=== PATIENT | female | born 1940 | race Caucasian/White ===

== ENCOUNTER 2016-07-08 10:11 | Day surgery (SDC) | payer MEDICARE ==
[~2016-07-08] VITALS: Ht 152.4 cm; Wt 73.0 kg
[~2016-07-08 10:11] MED LIST: 0.9% Sodium Chloride 1,000 ML IV SCH; ATOR10TA66 PO; GENT5DRO26 BOTH_EYES; LATA2.5D6 OP; LOSA25TA21 PO; OMPR20CCR PO; Sodium Chloride LOK Flush 10 mL Syringe IV PRN; TIMO5DRO5 OP; fentaNYL-PF 50 mCg/mL 2 mL Inj IVPUSH PRN
[2016-07-08 10:38] VITALS: BP 165/110; PULSE 77; RESP 16; O2SAT 97
[2016-07-08 12:08] VITALS: BP 110/73; PULSE 81; RESP 16; O2SAT 94
[2016-07-08 12:19] VITALS: BP 103/65; PULSE 69; RESP 16; O2SAT 94
[2016-07-08 12:23] VITALS: BP 100/68; PULSE 80; RESP 16; O2SAT 95
--- NOTE | 2016-07-08 13:27 | ENDO ---
[address] [address] ENDOSCOPY PROCEDURE PATIENT: BAO MUNSON : 1940 MR#: [id number] ADMIT: 07/08/2016 JOB ID: [id number] DATE OF SERVICE: 07/08/2016 PRIMARY PROVIDER: Percy Candelario MD. PROCEDURE: Esophagogastroduodenoscopy with biopsy. INDICATIONS: A 76-year-old female with a history of dyspepsia refractory to PPI. She has a history of hiatal hernia. Updated endoscopic evaluation is pursued. EQUIPMENT: [id number]. SEDATION: 1. Versed 5 mg. 2. Fentanyl 125 mcg. COMPLICATIONS: None identified. PROCEDURE INFORMATION: After the risks and benefits were explained, written and verbal informed consent was obtained. The patient was brought into the endoscopy suite and placed into the left lateral decubitus position. Sedation was achieved using the above-stated medications with the addition of oxygen via nasal cannula. The scope was introduced into the mouth through the bite block, and advanced under direct visualization to the level of the second portion of the duodenum. The scope was slowly withdrawn to carefully examine the mucosa for any defects or lesions. Retroflexed views were accomplished in the stomach. The stomach was decompressed. The scope removed from the patient who tolerated the procedure well. FINDINGS: 1. Duodenum: This appeared visually normal from the bulb through to the second portion. 2. Stomach: No ulcers, no outlet obstruction, no mass lesions. Mild gastropathy identified throughout. Random biopsy was acquired for exclusion of helicobacter or any other underlying histopathology. Otherwise, retroflexed views of the LES were unremarkable. 3. Esophagus: The squamocolumnar junction correlated with the top of the gastric folds. The GE junction was at 35 cm from the incisors. The diaphragmatic pinchcock was at 38 cm from the incisors. No acute erosive changes. No strictures. No mass lesions. ENDOSCOPIC DIAGNOSES: 1. Hiatal hernia. 2. Gastropathy. RECOMMENDATIONS: 1. Await histopathology. 2. Continue anti-reflux therapy. 3. The patient is offered a trial of natural probiotic. 4. Will follow up in my office on clinical efficacy in the short term.
--- NOTE | 2016-07-09 14:09 | PATH ---
SURGICAL PATHOLOGY Attending Physician:Derek Canas CASE STATUS: Signed Out PATIENT NAME: BAO MUNSON PID: [id number] : 1940 DATE COLLECTED:07/08/2016 21:53 SPECIMEN: Gastric, Biopsy CLINICAL HISTORY: 1). GASTRIC BIOPSY FINAL DIAGNOSIS: 1.GASTRIC BIOPSY: CHANGES CONSISTENT WITH BENIGN FUNDIC GLAND POLYP, NEGATIVE FOR ATYPIA. ICD10 CODE K31.7 GROSS DESCRIPTION: The specimen is received in one formalin filled container labeled with the patient's name, sublabeled "gastric" and consists of a 0.2 x 0.2 x 0.2 CM portion of tissue which is entirely submitted in one cassette. 07/08/2016 DAC MICRO DESCRIPTION: See diagnosis. ICD-9 CODES: CPT CODES: 1: 02934 PROCEDURE/ADDENDA: Addendum SPI Addendum Diagnosis {Not Entered} Addendum Comment At the request of Dr. Collins Man, additional information is added to the diagnosis regarding intestinal metaplasia and Helicobacter pylori. Negative for evidence of Helicobacter pylori. Negative for intestinal metaplasia. Electronically Signed Out Collins Munoz MD Electronically Signed Out Collins Munoz MD [facility] Pathology [facility] [address] [place] [address] Technical component performed at [facility], [facility] [address], [place], [address]
== END 2016-07-08 23:59 | disposition home or self-care (01) ==
LOC: END 10:11
PROVIDERS: ATTEND Internal Medicine Gastroenterology
DX: K44.9 Diaphragmatic hernia without obstruction or gangrene (principal); K31.9 Disease of stomach and duodenum, unspecified; Z85.828 Personal history of other malignant neoplasm of skin
CPT/HCPCS: 43239; J2250; J7030

== ENCOUNTER 2016-12-11 10:13 | Emergency (ER) | payer MEDICARE ==
[~2016-12-11] VITALS: Ht 149.9 cm; Wt 68.2 kg
[~2016-12-11 10:13] MED LIST changes: -0.9% Sodium Chloride 1,000 ML IV SCH; -Sodium Chloride LOK Flush 10 mL Syringe IV PRN; -fentaNYL-PF 50 mCg/mL 2 mL Inj IVPUSH PRN
[2016-12-11 10:17] VITALS: BP 184/118; PULSE 85; RESP 12; O2SAT 99
--- NOTE | 2016-12-11 10:20 | ED.REPORT ---
HPI-General Illness Date of Service Dec 11, 2016 ED Provider: Cresencio Constantino MD 76 y/o female with a hx of HTN, hyperlipidemia and hiatal hernia presents to the ED complaining of intermittent chest pain that radiates to the back and lasts 1-2 minutes, onset 10 hours ago. The pt woke up from the pain at midnight last night. She states she has been experiencing this pain for several years. It typically wakes her up at night at which point she drinks warm water and "take a little bit of Manuka honey" which resolves her sx. However, today nothing has helped, so she went to the urgent care and was advised to come in to the ED. The pt had also visited Dr. Candelario, her PCP, 4 days ago who found her ECG was abnormal but unchanged from a year ago. The pt takes 25mg Losartan and Atorvastatin but she did not take any today. Instead, she took TUMS, after which she began experiencing nausea. She also reports high blood pressure of 151 /111 this morning. She denies vomiting, fever, chills, diarrhea,constipation, hematochezia, dysuria and new onset of cough (she has chronic dry cough). She is scheduled for Fonix and to meet with Dr. Man, her heel packer. Nursing Notes Stated Complaint: CHEST PAIN Chief Complaint: Chest Pain Nursing Notes Reviewed: Yes Allergies: Coded Allergies: Penicillins (Verified Allergy, Unknown, 07/08/16) Scheduled Atorvastatin Calcium (Atorvastatin Calcium) 10 Mg Tablet 10 MG PO DAILY Gentamicin Sulfate (Gentamicin 0.3% Ophthalmic Solution) 5 Ml Drops 2 DRP BOTH_ EYES UD Latanoprost (Latanoprost) 2.5 Ml Drops 1 GTT OP HS Omeprazole (Prilosec) 20 Mg Capcr 20 MG PO DAILY Miscellaneous Medications Losartan Potassium (Losartan Potassium) 25 Mg Tablet Unknown Dose PO Timolol Maleate (Timolol Maleate) 5 Ml Drops 5 ML OP General Time Seen by MD: 10:20 Chief Complaint Chest pain Hx Obtained From: Patient Arrived By: Walk-in Sudden in Onset?: Yes Onset Occurred: 9 - 12 hours ago Symptom Duration: Intermittent Location: : Chest Quality: Painful Radiation: : Back Severity: Current: Mild Severity: Maximum: Mild Recent Healthcare: Recent doctor visit Similar Sx Previous: Yes Past Medical History Past Medical History Hiatal hernia Reports: Hyperlipidemia, Hypertension Past Surgical History Biopsy Smoking History Never Smoker Ambulatory Status Independent Review of Systems Reports: high BP Full Review of Systems Constitutional: Denies: Chills, Fever Respiratory: Denies: Non-productive cough (chronic cough) Cardiovascular: Reports: Chest pain GI: Reports: Nausea, Denies: Constipation, Diarrhea, Hematochezia, Vomiting Female: Denies: Dysuria Complete sys rev & neg: except as marked. Physical Exam Vital Signs Vital Signs Date Time Temp Pulse Resp B/P Pulse Ox O2 Delivery O2 Flow Rate FiO2 12/11/16 11:42 36.4 74 20 166/111 98 Room Air 12/11/16 10:17 36.4 85 12 184/118 99 Room Air Initial VS: Reviewed Head / Eyes: Atraumatic, Normocephalic Neck: Supple, Non-tender, Full range of motion Abdomen / GI: Soft, Non-tender Extremities: Vascular intact, Neuro intact, No swelling, No tenderness Skin: Warm, Dry, No cyanosis Neurologic: Alert, Oriented, Nonfocal General/Constitutional: Awake, Alert, No acute distress, Cooperative Respiratory / Chest: Atraumatic, Breath sounds NL, No respiratory distress, No wheezing Cardiovascular: Heart rate NL, Regular rhythm, Peripheral circulation NL Interpretation & Diagnostics Lab Results Interpretation Result Diagram: 12/11/16 1036 12/11/16 1036 Test 12/11/16 10:36 White Blood Count 7.7th/mm3 (3.8-10.1) Red Blood Count 5.36mil/mm3 (3.90-5.20) Hemoglobin 15.9g/dL (12.0-15.6) Hematocrit 47.7% (35.0-46.0) Mean Corpuscular Volume 89.0fL (81-100) Mean Corpuscular Hemoglobin 29.7pg (27.0-35.0) Mean Corpuscular Hemoglobin Concent 33.3% (32.0-37.0) Red Cell Distribution Width 13.8% (12.3-15.4) Platelet Count 204bil/L (150-400) Neutrophils (%) (Auto) 69.6% (40-74) Lymphocytes (%) (Auto) 25.7% (14-46) Monocytes (%) (Auto) 4.4% (4-12) Eosinophils (%) (Auto) 0.1% (0-5) Basophils (%) (Auto) 0.1% (0-3) Sodium Level 142mEq/L (134-144) Potassium Level 4.5mEq/L (3.5-5.2) Chloride Level 103mEq/L (97-108) Carbon Dioxide Level 25mmol/L (18-29) Blood Urea Nitrogen 11mg/dL (8-27) Creatinine 0.70mg/dL (0.57-1.00) Estimat Glomerular Filtration Rate 116mL/min (>59) Glucose Level 127mg/dL (60-99) Calcium Level 10.2mg/dL (8.5-10.1) Total Bilirubin 0.5mg/dL (0.0-1.2) Aspartate Amino Transf (AST/SGOT) 17U/L (0-50) Alanine Aminotransferase (ALT/SGPT) 14U/L (0-32) Alkaline Phosphatase 69U/L (25-165) Troponin T < 0.010ug/L (0.0-0.011) Total Protein 7.3g/dL (6.4-8.4) Albumin 4.3g/dL (3.4-5.0) ECG Interpretation ECG Interpretation: Left axis deviation Left anterior fascicular block Normal sinus rhythm. Rate 80. No specific ST wave changes This ECG same as compared to one done on December 07. Time: 09:42 Interpreted by: ED physician Re-Eval/Medical Decision Med Decision/Clinical Course Uncontrolled hypertension today. I believe that high blood pressure at this moment is likely related to the fact that she did not take her blood pressure medicine this morning. I recommended that she take her regular dose as she gets home. Source of Hx: Old records Time of Eval: 11:32 Patient Status: Condition improved Re-Evaluation/Progress Note: Rechecked pt. Discussed lab results, diagnosis and plan to discharge. Pt understands and agrees with the plan. F/U instructions and RTER warning given. All questions addressed. Symptoms are improved with GI cocktail Counseled Regarding: Diagnosis, Lab results, Need for follow-up, When/why to return to ED Discharge & Departure Primary Impression: Midepigastric pain Additional Impression: Hypertension Disposition: Home Discharge Condition All VS Reviewed: Yes Condition: Stable Patient Instructions: Epigastric Pain (ED) Additional Instructions: No dangerous cause for your pain is discovered today. I do not believe this represents a heart attack or any other immediately dangerous condition. Laboratory data is reassuring. I recommended that he follow-up with your primary care provider in the coming days to consider further evaluation for these symptoms. Referrals: Percy Candelario MD (PCP) Scribe Attestation Portions of this note were transcribed by Keerthi Collins. I, , personally performed the history, physical exam and medical decision- making;I reviewed and confirmed the accuracy of the information in the transcribed note. Signed by Zhen Young. 12/11/16 11:31 copies to: Percy Candelario MD, Kirk H MD Dec 11, 2016 10:20 Keerhti Collins Dec 11, 2016 10:32
[2016-12-11] MEDS ORDERED: LidocaineVisc 2%:Antacid 1:1 10 mL Syringe PO ONE (10:30)
[2016-12-11 10:43] LABS: BASOPHILS % (AUTO) 0.1 % (0-3); EOSINOPHILS % (AUTO) 0.1 % (0-5); MONOCYTES % (AUTO) 4.4 % (4-12); Mean Corpuscular Hemoglobin 29.7 pg (27.0-35.0); NEUTROPHILS % (AUTO) 69.6 % (40-74); Platelet Count 204 bil/L (150-400)
[2016-12-11 11:24] LABS: TROPONIN T < 0.010 ug/L (0.0-0.011)
[2016-12-11 11:42] VITALS: BP 166/111; PULSE 74; RESP 20; O2SAT 98
== END 2016-12-11 11:43 | disposition home or self-care (01) ==
LOC: SED 10:13
DX: R10.13 Epigastric pain (principal); I10 Essential (primary) hypertension; R11.0 Nausea; E78.5 Hyperlipidemia, unspecified; Z87.19 Personal history of other diseases of the digestive system; Z88.0 Allergy status to penicillin
CPT/HCPCS: 36415; 80053; 84484; 85025; 93005; 99285; G0463

== ENCOUNTER 2017-02-17 06:32 | Day surgery (SDC) | payer MEDICARE ==
[~2017-02-17] VITALS: Ht 152.4 cm; Wt 65.4 kg
[2017-02-17] VITALS (11 sets, daily range): BP systolic 108–164; BP diastolic 6–83; PULSE 60–85; RESP 11–18; O2SAT 94–99
[2017-02-17] MEDS: Lactated Ringer's 1,000 ML IV SCH ×3 (06:09→12:15)
[~2017-02-17 06:32] MED LIST changes: +CeFAZolin Inj 2 GM in IV Premix 1 EACH IV ONE; -GENT5DRO26 BOTH_EYES; +MULT-1018 PO
[2017-02-17] MEDS ORDERED: Ketamine 10 mg/mL 20 mL Inj ONE (06:33)
[2017-02-17] MEDS ORDERED: HYDROmorphone 1 mg/mL Inj ONE (06:33)
[2017-02-17] MEDS ORDERED: Glycopyrrolate 0.2 MG/ML 1mL Inj ONE (06:33)
[2017-02-17] MEDS ORDERED: Rocuronium 10 mg/mL 5 mL Inj ONE (06:33)
[2017-02-17] MEDS ORDERED: Neostigmine 1 mg/mL 10 mL Inj ONE (06:33)
[2017-02-17] MEDS ORDERED: Propofol 10,000 mCg/mL 20 mL Inj ONE (06:33)
[2017-02-17] MEDS ORDERED: Dexamethasone 4 mg/mL Inj ONE (06:33)
[2017-02-17] MEDS ORDERED: MetoCLOpramide 5 mg/mL 2 mL Inj ONE (06:33)
[2017-02-17] MEDS ORDERED: Ondansetron 2 mg/mL 2 mL Inj ONE (06:33)
[2017-02-17] MEDS ORDERED: Phenylephrine 10,000 mCg/mL Inj IVPUSH PRN (10:45)
[2017-02-17] MEDS ORDERED: MetoCLOpramide 5 mg/mL 2 mL Inj IVPUSH PRN (10:45)
[2017-02-17] MEDS ORDERED: Lactated Ringer's 1,000 ML IV SCH (10:45)
[2017-02-17] MEDS ORDERED: Lactated Ringer's 500 ML IV PRN (10:45)
[2017-02-17] MEDS ORDERED: HYDROmorphone 1 mg/mL Inj IVPUSH PRN (10:45)
[2017-02-17] MEDS ORDERED: fentaNYL-PF 50 mCg/mL 2 mL Inj IVPUSH PRN (10:45)
[2017-02-17] MEDS ORDERED: EPHEDrine Sulfate 50 mg/mL Inj IVPUSH PRN (10:45)
[2017-02-17] MEDS ORDERED: Dexamethasone 4 mg/mL Inj IVPUSH PRN (10:45)
--- NOTE | 2017-02-17 10:45 | PCM.HPANE ---
Patient Data Surgeon Admitting Provider: Attending Provider:Cris Fischer MD Primary Care Physician:Percy Candelario MD Other Provider:Presley Mai Anesthesia Reason for Visit Chronic Cholecystitis Ht/WT & BMI Height (Feet): 5 Height (Inches): 0.00 Weight (Kilograms): 65.4 Body Mass Index 28.00 Allergies Coded Allergies: Penicillins (Verified Allergy, Severe, anaphylaxis, 02/10/17) Past Anesthesia History Anesthesia History: Denies:: Abnormal Airway, Anesthesia Reactions (Has not had surgery since child tonsillectomy), Difficult Intubation, Fam Anesthesia Reaction, Fam Malignant Hypertherm, Malignant Hyperthermia Diabetes History Hx Diabetes?: No MRSA MRSA: No Medications Home Meds Incl Beta Nurys: No Reported Medications Multivitamin (Multi Vitamin Daily)1 Each Tablet1 Each PO DAILY 30 Days Ref 0 02/10/17 Losartan Potassium 25 Mg [id number] Mg PO DAILY 02/10/17 Timolol Maleate 5 Ml Drops5 Ml OP 07/07/16 Omeprazole (Prilosec)20 Mg Capcr20 Mg PO DAILY 30 Days Ref 0 02/19/14 Latanoprost 2.5 Ml Drops1 Gtt OP HS #1 BOTTLE 02/19/14 Atorvastatin Calcium 10 Mg [id number] Mg PO DAILY 30 Days Ref 0 02/19/14 Discontinued Reported Medications Gentamicin Sulfate (Gentamicin 0.3% Ophthalmic Solution)5 Ml Drops2 Drp BOTH_ EYES UD #5 ML Ref 0 07/07/16 Losartan Potassium 25 Mg TabletUnknown Dose PO 07/07/16 History History of ENT Problems?: No HEENT History: Denies:: Abnormal Airway Difficult Intubation Dysphagia Hearing Problem Sinus Problem TMJ Denture Type: None Teeth Condition: Within Normal Limits Hx of Heart Problems?: Yes Cardiovascular History: Positive for:: Chest Pain (non cardiac chest pain) Hypertension Denies:: AICD Atrial Fibrillation Cardiac Surgery Congestive Heart Failure Heart Murmur Irregular Heartbeat Pacemaker Peripheral Vascular Rheumatic Fever Valvular Heart Disease Hx of Respiratory Problem?: No Respiratory History: Positive for:: Cough (prilosec related) Denies:: Asthma COPD Chest Surgery Dyspnea Emphysema Hemoptysis Pneumonia Pulmonary Embolism Tuberculosis Use of C-PAP Machine Use of Inhalers / NEBS Hx Neurologic Problems?: No Neurological History: Denies:: Alzheimer's Disease CVA Dementia Dizziness Headaches Multiple Sclerosis Parkinson's Disease Seizures TIA Hx of GI Problems?: Yes Gastrointestinal History: Denies:: Cirrhosis Diverticulitis Gall Bladder Disease Gastroesphageal Reflux Gastrointestinal Bleeding Heartburn Hepatitis Hiatal Hernia Liver Disease Rectal Bleeding Other GI Pertinent History: Banded hemorrid Hx of Problems?: No Genitourinary History: Denies:: HX of Hemodialysis Kidney Stones Urinary Tract Infection HX of Peritoneal Dialysis: No Female Hx: Denies:: Currently Problems with Breasts? Skin History: Denies:: History Skin Disorders? Hx Musculoskeletal Problems?: No Musculoskeletal History: Denies:: Back Injury Degenerative Joint Joint Replacement Musculoskeletal Trauma (torn cartlidge right leg) Myasthenia Gravis Osteoarthritis Rheumatoid Arthritis Systemic Lupus Psycho Social History: Denies:: Anxiety Hx Depression Hx Surgeries?: Yes (TONSILECTOMY AGE 4 ) Hx Any Other Health Problems?: No Other History: Denies:: Cancer Endocrine Disease Hospitalization (child ) Thyroid Disease History Blood Transfusions: Positive for:: Accept Blood Products? Blood Transfusions Denies:: Blood Transfuse Reaction Hx Diabetes: No Hx Alcohol Use: Yes (rare)Alcoholic Drinks Per Day: wine or beer class a week Hx Substance Use: No Smoking Status: Never Smoker Have You Smoked inLast 12 mo: No Stop/Bang Treated for Sleep Apnea?: No Do You Have a CPAP Machine?: No S-Snoring: Do You Snore Loudly: No T-Tired: feel tired, fatigued: No O-Obsered: Observed not breath: No P-Blood Pressure: treated: Yes B- Body Mass Index > 35 kg/m2: No A- Age over 50: Yes N- Neck Large Circumference: No G- Gender Male: No NICOLE Total Score: 2 NICOLE Risk Assessment: Low Risk, <3 Yes Risk Assessment Category Category 1A: Patient has history of documented sleep apnea, and HAS NOT received any narcotic, sedative or anesthesia administration during this stay. Category 1B: Patient has history of documented sleep apnea, and HAS received any narcotic , sedative or anesthesia administration during this stay Category 2: Patient has SUSPECTED Obstructive Sleep Apnea, and HAS received any narcotic , sedative or anesthesia administration during this stay. Category 3: Patient has SUSPECTED Obstructive Sleep Apnea and HAS NOT received narcotic, sedative or anesthesia administration during this stay. Category 4: Outpatient in Procedural Areas with known sleep apnea or who screen positive for High Risk via the STOP/BANG questionnaire. Exam Exam Vital Signs Vital Signs Date Time Temp Pulse Resp B/P Pulse Ox O2 Delivery O2 Flow Rate FiO2 02/17/17 07:37 36.4 78 18 164/83 98 Room Air General Appearance: Oriented X3 HEENT/AIRWAY: MP 2 Lungs: Normal Air Movement Heart: Regular Rate/Rhythm Meds/Labs/Diagnostics Admission Meds Current Medications Lactated Ringer's (Lr) 1,000 ml @ 120 mls/hr Q8H20M IV Last administered on 06:09; Start 02/17/17 at 05:00; Stop 02/17/17 at 13:19 Acetaminophen (Tylenol) 650 mg STK-MED ONCE PO Last administered on 02/17/17 07:30; Start 02/17/17 at 07:30; Stop 02/17/17 at 07:31; Status DC Gabapentin (Neurontin) 600 mg STK-MED ONCE .ROUTE Last administered on 08:01; Start 02/17/17 at 07:30; Stop 02/17/17 at 07:31; Status DC Celecoxib (CeleBREX) 200 mg STK-MED ONCE .ROUTE Last administered on 02/17/17 08:01; Start 02/17/17 at 07:31; Stop 02/17/17 at 07:32; Status DC Plan Impression Patient chart reviewed, patient interviewed and anesthestic plan with risks, benefits, and alternatives discussed, and informed consent obtained. ASA Physical Status: ASA2 Mod Systemic Disease Anesthetic Plan: GA Bene/Risks/Altern/Consents: Yes HP Complete Prior to Induction: Yes Rosalino Rodríguez MD Feb 17, 2017 10:45
[2017-02-17] MEDS ORDERED: Bupivacaine-MPF 0.5% 30 mL Inj INFILTRATE ONE (10:53)
--- NOTE | 2017-02-17 12:32 | PCM.SURGOP ---
Surgical Operative Report Date of Service: Feb 17, 2017 Pre Operative Diagnosis Chronic cholecystitis Post Operative Diagnosis Chronic cholecystitis Procedure: Laparoscopic cholecystectomy Surgeon and Caser Up: Surgeon: Cris Fischer MD Assistants: Arnav Mahoney MD R3; Luann Martin MS3 Indication for Procedure This is a 77-year-old woman who had recurrent epigastric postprandial abdominal pain for many years. Abdominal ultrasound showed only tiny polyps within the gallbladder, and therefore she underwent further workup including upper endoscopy and HIDA scan, which revealed a gallbladder ejection fraction of 20%. The endoscopy did not reveal an etiology for her symptoms. Based on her overall clinical status, she was consented for laparoscopic cholecystectomy. Findings: 1. Several tiny gallstones were present. 2. Gallbladder edema and adhesions, consistent with chronic cholecystitis. 3. Critical view achieved prior to division of any structures. Procedure Details The patient was brought to the operating room and placed in supine position. General endotracheal anesthesia was smoothly induced. Antibiotics were infused. A warming blanket and SCDs were placed. A foot board was placed. The operative field was prepped and draped in sterile fashion. A pause was performed to confirm the correct patient, procedure, site, and side. A transverse 10 mm incision was made just below the umbilicus. The abdomen was entered under direct vision using a Beverly port. Three additional 5 mm ports were placed in the epigastrium and right upper quadrant. The gallbladder was identified and lifted cephalad. Dissection then proceeded to identify the cystic duct, cystic artery, and to expose the bottom one third of the cystic plate. Once there were two and only two structures entering the gallbladder, the cystic duct was clipped on the gallbladder and twice on the patient side, and the cystic artery was clipped twice on the patient's side and once on the gallbladder side, and both were then divided. The gallbladder was then removed from its bed on the liver with electrocautery. Prior to completely removing the gallbladder, a final look was taken at the stump of the cystic artery and cystic duct, and there was no bleeding or bile leak. The gallbladder was then fully removed from the liver and placed in an EndoCatch bag and removed. The three 5 mm ports were removed under direct vision, the 10 mm mid abdominal port was removed, and a irgaof-pl-iscdh 0 PDS was used to close the fascia. There was no fascial defect at the end of the case. 0.5% Marcaine with epinephrine was infused at all port sites for postoperative analgesia. The skin was closed with subcuticular 4-0 Monocryl. Sterile dressings were placed. The patient was awakened from general anesthesia and taken to the postoperative care unit in good condition. Complications There were no periprocedural complications identified. Surgical Specimen Removed: Yes Specimen sent to Pathology: Yes Surgical Specimen description: Gallbladder. It was opened on the back table and was found to contain 3 tiny black stones. Polyps were not identified. Anesthetic Plan: GA Grafts, Implants: None Output, Estimated Blood Loss: 5 (ml) Blood Administration during arevalo: No Cris Fischer MD Feb 17, 2017 12:32
[2017-02-17] MEDS ORDERED: oxyCODONE-Acetamin 5-325 mg Tablet PO PRN (12:40)
--- NOTE | 2017-02-17 12:42 | PCM.DISURG ---
Surgical Discharge Instruction Date of Service Feb 17, 2017 Dates of Hospitalization Date of Hospital Admission Providers Admitting Physician: Primary Care Physician: Percy Candelario MD Attending Physician: Cris Fischer MD Discharge Diagnosis Post Operative diagnosis Chronic cholecystitis Diet Discharge Diet: No restrictions Activity Discharge Activity-General: Be up and about, Activity as pain allows, No lifting >15 pounds for 2 weeks, No driving while taking narcotic Dressing and Incisional Care Dressing Care: Allow Steri Stripes to fall off, Remove outer dressing after 24 hrs Hygiene: May shower after (24 hours), DO NOT soak incision under water, NO bathtub, hot tub or whirlpool Follow Up Plan Follow Up Plan Follow up in the surgery clinic in the next 2-4 weeks. Call at any time with questions or concerns. Call your provider for: Fever, Increasing abdominal pain, Nausea, Vomiting, Wound redness, Discharge @ incision, pus discharge Jason Mahoney MD Feb 17, 2017 12:42
--- NOTE | 2017-02-17 13:15 | PCM.ANEP1 ---
Post Anesthesia PACU Phase 1 Assessment Vital Signs Vital Signs Date Time Temp Pulse Resp B/P Pulse Ox O2 Delivery O2 Flow Rate FiO2 02/17/17 13:05 65 15 114/64 98 Nasal Cannula 3 02/17/17 12:50 80 14 118/65 98 Nasal Cannula 3 02/17/17 12:45 83 17 118/72 99 Simple Mask 8 02/17/17 12:40 85 15 129/6 99 Simple Mask 8 02/17/17 12:35 36.7 85 16 129/76 99 Simple Mask 8 02/17/17 07:37 36.4 78 18 164/83 98 Room Air Anesthetic Administered: GA Level of Alertness: Awake, talking Pain: No Nausea or Vomiting: No CV Function & Hydration Stable: Yes Airway Device: Lungs: Normal Air Movement PACU Phase 2 Assessment Patient Instructions Provided: N/A Rosalino Rodríguez MD Feb 17, 2017 13:15
[2017-02-17] MEDS: Ondansetron 2 mg/mL 2 mL Inj IVPUSH PRN ×2 (13:18→17:07)
[2017-02-17] MEDS ORDERED: hydrOXYzine Inj 50 MG/1 mL SDV IM ONE ×3 (17:32→17:59)
--- NOTE | 2017-02-23 09:33 | PATH ---
SURGICAL PATHOLOGY Attending Physician:Cris Fischer MD CASE STATUS: Signed Out PATIENT NAME: BAO MUNSON PID: [id number] : 1940 DATE COLLECTED:02/17/2017 19:51 SPECIMEN: Gallbladder CLINICAL HISTORY: CHRONIC CHOLECYSTITIS 1). GALLBLADDER FINAL DIAGNOSIS: Gallbladder, Cholecystectomy: -Chronic cholecystitis. ICD10: K81.1 GROSS DESCRIPTION: The specimen is received in one formalin filled container labeled with the patient's name, sublabeled "gallbladder" and consists of an opened 5.5 x 2.0 x 1.0 CM gallbladder. The serosa is smooth. The cystic duct is possibly identified. The wall is 0.1-0.3 CM in thickness. The mucosa is a green aguayo in color. The lumen contains a dark green mucoid material and no calcului are noted. 5 presented sections are submitted in one cassette. 02/17/2017DC ICD-9 CODES: CPT CODES: 1: 80262 Electronically Signed Out Ion Staples MD [facility] Pathology [facility] [address], [place] [address] Technical component performed at [facility], [address] [place] [address] [address], [place], [address]
== END 2017-02-17 23:59 | disposition home or self-care (01) ==
LOC: SAS 06:32
PROVIDERS: ATTEND Surgery
DX: K81.1 Chronic cholecystitis (principal); K44.9 Diaphragmatic hernia without obstruction or gangrene; I10 Essential (primary) hypertension
CPT/HCPCS: 47562; J0690; J1100; J1170; J2405; J2704; J2710; J2765; J3410; J7120